=== PATIENT | male | born 1995 | race Caucasian/White ===

== ENCOUNTER 2020-08-27 11:52 | Emergency (ER) | payer OTHER ==
[2020-08-27 12:21] VITALS: BP 149/84; PULSE 100; TEMP 99; BMI 38.0
== END 2020-08-27 13:41 | disposition home or self-care (01) ==
LOC: JERFT 11:52
DX: J02.9 Acute pharyngitis, unspecified (principal)
CPT/HCPCS: 87880; 99283-25; C9803; U0003

== ENCOUNTER 2020-08-27 21:57 | Emergency (ER) | payer OTHER ==
[2020-08-27 22:00] VITALS: TEMP 99.4; BMI 38.0
[2020-08-27] MEDS ORDERED: PENICILLIN G BENZATHINE 1,200,000 UNIT/2 ML PFS IM ONE ×2 (23:22→23:33)
[2020-08-27] MEDS ORDERED: DEXAMETHASONE LIQUID 0.5 MG/5 ML PO ONE (23:24)
[2020-08-27] MEDS ORDERED: IBUPROFEN 100 MG/5 ML UNIT DOSE CUPS PO ONE (23:24)
[2020-08-27] MEDS ORDERED: IBUPROFEN 100 MG/5 ML UNIT DOSE CUPS ONE (23:32)
[2020-08-27] MEDS ORDERED: DEXAMETHASONE SOD PHOSPHATE 10 MG/1 ML VIAL ONE (23:32)
[2020-08-28 01:20] VITALS: BP 128/74; PULSE 101
== END 2020-08-28 01:17 | disposition home or self-care (01) ==
LOC: JER 21:57
DX: J03.90 Acute tonsillitis, unspecified (principal)
CPT/HCPCS: 99284-25